=== PATIENT | female | born 1990 | race Caucasian/White ===

== ENCOUNTER 2016-10-21 20:44 | Emergency (ER) | payer OTHER ==
[2016-10-21 21:04] VITALS: O2SAT 99
--- NOTE | 2016-10-21 21:17 | C.PDOC ---
History Of Present Illness Patient was brought to the ED by EMS with complaints of hyperventilating. Patient has unknown etiology and notes diffuse tingling in bilateral arms, fingers, and feet. Patient denies chest pain, fever, or vomiting. Time Seen by Provider: 10/21/16 21:16 Chief Complaint (Nursing): Anxiety History Per: Patient, EMS History/Exam Limitations: no limitations Onset/Duration Of Symptoms: Hrs Current Symptoms Are (Timing): Still Present Suicide/Self Injury Attempted (Context): None Severity: Mild Pain Scale Rating Of: 3 Associated Symptoms: Anxiety. denies: Suicidal Thoughts, Suicidal Plan Involuntary Hold By: None Recent travel outside of the [place]: No Additional History Per: Boyfriend Past Medical History Reviewed: Historical Data, Nursing Documentation, Vital Signs Vital Signs: Last Vital Signs Temp Pulse 130 H 10/21/16 21:00 Resp 28 H 10/21/16 21:00 BP Pulse Ox 99 10/21/16 21:37 - Medical History PMH: Hyperthyroidism Family History: States: Unknown Family Hx - Social History Hx Alcohol Use: No Hx Substance Use: No - Immunization History Hx Tetanus Toxoid Vaccination: No Hx Influenza Vaccination: No Hx Pneumococcal Vaccination: No Review Of Systems Constitutional: Negative for: Fever, Chills Respiratory: Positive for: Other (hyperventilating ) Neurological: Positive for: Other (diffuse tingling sensation in arms, fingers, and feet ) Physical Exam - Physical Exam Appears: Non-toxic, Other (Patient appears anxious ) Skin: Warm, Dry Head: Normacephalic Eye(s): bilateral: Normal Inspection, PERRL, EOMI Oral Mucosa: Moist Tongue: Normal Appearing Lips: Normal Appearing Throat: No Erythema Neck: Supple Chest: Symmetrical, No Deformity Cardiovascular: Rhythm Regular Respiratory: No Rales, No Rhonchi, No Wheezing, Other (hyperventilating) Gastrointestinal/Abdominal: Soft, No Tenderness, No Distention, No Guarding, No Rebound Back: No CVA Tenderness Extremity: Normal ROM (Full ROM, moving all extremities well), No Tenderness, No Calf Tenderness, Capillary Refill (good capillary refill, less than 2 seconds.), No Deformity, No Swelling Extremity: Bilateral: Atraumatic Pulses: Left Dorsalis Pedis: Normal, Right Dorsalis Pedis: Normal Neurological/Psych: Oriented x3, Normal Speech, Normal Cognition Gait: Steady ED Course And Treatment O2 Sat by Pulse Oximetry: 99 (room air ) Pulse Ox Interpretation: Normal Progress Note: Patient was given a paperbag to breath into. 10:10 PM pt back to baseline. Speaking in complete sentences.Unknown trigger event. Pt wants to go home Reevaluation Time: 22:12 Reassessment Condition: Improved Disposition Counseled Patient/Family Regarding: Studies Performed, Diagnosis, Need For Followup - Disposition Referrals: [facility] [Outside] [facility] [Outside] Disposition: HOME/ ROUTINE Disposition Time: 21:17 Condition: FAIR Instructions: Hyperventilation (ED) Forms: [employer] (Georgian) - Clinical Impression Clinical Impression: Hyperventilating - Scribe Statement The provider has reviewed the documentation as recorded by the Scribe Lauren Mac All medical record entries made by the Scribe were at my direction and personally dictated by me. I have reviewed the chart and agree that the record accurately reflects my personal performance of the history, physical exam, medical decision making, and the department course for this patient. I have also personally directed, reviewed, and agree with the discharge instructions and disposition.
[2016-10-21 22:24] VITALS: BP 124/78; PULSE 80; RESP 18; TEMP 98.2
== END 2016-10-21 22:24 | disposition home or self-care (01) ==
LOC: C.ER 20:44
DX: R06.4 Hyperventilation (principal)